=== PATIENT | female | born 1965 | race Caucasian/White ===

== ENCOUNTER 2020-07-25 13:55 | Inpatient (IN) ==
[2020-07-25] MEDS ORDERED: Clindamycin 900 MG/50 ML 900 MG/50 ML IV.SOLN IVPB ONE (14:07)
[2020-07-25] MEDS ORDERED: Ringers Solution, Lactated 1,000 ML IVC SCH (14:15)
[2020-07-25] MEDS ORDERED: *HR* HYDROmorphone PF 0.5 MG/0.5 ML SYRINGE IVP PRN (14:55)
[2020-07-25] MEDS ORDERED: *HR* OxyCODONE Immed Rel 5 MG TABLET PO PRN (14:55)
[2020-07-25] MEDS ORDERED: Ondansetron 4 MG/2 ML VIAL IVP ONE (14:55)
[2020-07-25] MEDS ORDERED: Vancomycin 1,000 MG VIAL ONE (16:15)
[2020-07-25] MEDS ORDERED: Ethanol\\Acetic Acid\\Na Ace\\Ben 1,000 ML IRRIG.SOLN IR ONE (16:15)
[2020-07-25] MEDS ORDERED: *HR* Propofol 200 MG/20 ML VIAL IVP ONE (16:29)
[2020-07-25] MEDS ORDERED: *HR* FentaNYL (PF) 100 MCG/2 ML VIAL ONE ×2 (16:29→17:05)
[2020-07-25] MEDS ORDERED: *HR* Midazolam HCl 2 MG/2 ML VIAL ONE (16:29)
[2020-07-25] MEDS ORDERED: Ropivacaine/PF 0.5% 30 ML VIAL ONE (16:31)
[2020-07-25] MEDS ORDERED: ROPIVACAINE/PF/NS 0.25% 1 EACH SYRINGE INTRAART ONE (16:31)
[2020-07-25] MEDS ORDERED: Lidocaine HCL 4 ML Topical Solution (Laryng-O-Jet Kit Sterile Pak) TP ONE (16:31)
[2020-07-25] MEDS ORDERED: Dexamethasone 4 MG/ML VIAL ONE (16:31)
[2020-07-25] MEDS ORDERED: Ondansetron 4 MG/2 ML VIAL ONE (16:31)
[2020-07-25] MEDS ORDERED: *HR* Succinylcholine 200 MG/10 ML VIAL IVP ONE (16:31)
[2020-07-25] MEDS ORDERED: Lidocaine -MPF 2% 2 ML VIAL ONE (16:31)
[2020-07-25] MEDS ORDERED: *HR* Labetalol 20 MG/4 ML SYRINGE IVP ONE ×2 (18:04→18:30)
[2020-07-25] MEDS: *HR* Labetalol 20 MG/4 ML SYRINGE IVP PRN ×2 (18:05→18:17)
[2020-07-25 18:39] LABS: Hematocrit 43.5 % (35.3-44.9); Hemoglobin 13.7 g/dL (11.5-15.4)
[2020-07-25] MEDS ORDERED: *HR* Dextrose 50 % in Water (Vial) 50 ML VIAL IVP PRN (19:12)
[2020-07-25] MEDS ORDERED: D5% in Water 1,000 ML IVC PRN (19:12)
[2020-07-25] MEDS ORDERED: Dextrose Gel 15 GM/37.5 ML TUBE PO PRN ×2 (19:12)
[2020-07-25] MEDS ORDERED: Sennosides 8.6 MG TABLET PO PRN (19:12)
[2020-07-25] MEDS ORDERED: Ondansetron 4 MG/2 ML VIAL IVP PRN (19:12)
[2020-07-25] MEDS ORDERED: MOM Conc 10 ML UD.LIQ PO PRN (19:12)
[2020-07-25] MEDS ORDERED: Naloxone 0.4 MG/ML INJ IVP PRN (19:12)
[2020-07-25] MEDS: Ringers Solution, Lactated 1,000 ML IVC SCH (20:13)
[2020-07-25] MEDS: *HR* OxyCODONE Immed Rel 5 MG TABLET PO PRN (20:13)
[2020-07-25] MEDS: Insulin LISPRO 300 UNITS/3 ML VIAL SQ SCH ×2 (20:32)
[2020-07-26] MEDS: Clindamycin 900 MG/50 ML 900 MG/50 ML IV.SOLN IVPB SCH ×2 (00:23→10:41)
[2020-07-26 02:26] LABS: Hematocrit 43.1 % (35.3-44.9); Hemoglobin 13.9 g/dL (11.5-15.4)
[2020-07-26 02:44] LABS: BUN/Creatinine Ratio 22 (6-26); Blood Urea Nitrogen 14 mg/dL (6-20); Calcium 9.6 mg/dL (8.6-10.3); Carbon Dioxide 22 mEq/L (23-29); Chloride 103 mEq/L (98-107); Glucose 184 mg/dL (70-105); Osmolality,Calculated 289 (280-300); Sodium 137 mEq/L (136-145); eGFR For African Americans > 60 (> 60); eGFR For Non-African Americans > 60 (> 60)
[2020-07-26] MEDS ORDERED: Aspirin Enteric Coated 81 MG Tablet PO SCH (09:00)
[2020-07-26] MEDS: Insulin LISPRO 300 UNITS/3 ML VIAL SQ SCH ×4 (10:39→20:52)
[2020-07-26] MEDS: *HR* OxyCODONE Immed Rel 5 MG TABLET PO PRN ×2 (10:39→20:52)
[2020-07-26] MEDS: Aspirin Enteric Coated 81 MG Tablet PO SCH (10:40)
[2020-07-26] MEDS: Ringers Solution, Lactated 1,000 ML IVC SCH (10:40)
[2020-07-27] MEDS: Ringers Solution, Lactated 1,000 ML IVC SCH ×2 (04:53→11:58)
[2020-07-27] MEDS: Aspirin Enteric Coated 81 MG Tablet PO SCH (07:35)
[2020-07-27] MEDS: Insulin LISPRO 300 UNITS/3 ML VIAL SQ SCH ×4 (08:02→20:06)
[2020-07-27 10:40] LABS: Hematocrit 45.5 % (35.3-44.9); Hemoglobin 14.1 g/dL (11.5-15.4)
[2020-07-27 10:59] LABS: BUN/Creatinine Ratio 32 (6-26); Blood Urea Nitrogen 24 mg/dL (6-20); Calcium 10.4 mg/dL (8.6-10.3); Carbon Dioxide 24 mEq/L (23-29); Chloride 104 mEq/L (98-107); Glucose 186 mg/dL (70-105); Osmolality,Calculated 293 (280-300); Potassium 4.2 mEq/L (3.5-5.1); Sodium 137 mEq/L (136-145); eGFR For African Americans > 60 (> 60); eGFR For Non-African Americans > 60 (> 60)
[2020-07-27] MEDS: *HR* OxyCODONE/APAP 5/325 TABLET PO PRN (11:34)
[2020-07-27] MEDS: *HR* OxyCODONE Immed Rel 5 MG TABLET PO PRN (19:52)
[2020-07-28] MEDS: *HR* OxyCODONE Immed Rel 5 MG TABLET PO PRN ×2 (01:00→08:01)
[2020-07-28] MEDS: Insulin LISPRO 300 UNITS/3 ML VIAL SQ SCH ×4 (07:50→20:34)
[2020-07-28] MEDS: Aspirin Enteric Coated 81 MG Tablet PO SCH (07:57)
[2020-07-28] MEDS: Ringers Solution, Lactated 1,000 ML IVC SCH ×2 (11:13→11:14)
[2020-07-28] MEDS: *HR* OxyCODONE/APAP 5/325 TABLET PO PRN (20:44)
[2020-07-28] MEDS: lisinopriL 10 MG TABLET PO SCH (20:44)
[2020-07-29] MEDS: Insulin LISPRO 300 UNITS/3 ML VIAL SQ SCH ×3 (09:59→17:17)
[2020-07-29] MEDS: lisinopriL 10 MG TABLET PO SCH (10:05)
[2020-07-29] MEDS: Aspirin Enteric Coated 81 MG Tablet PO SCH (10:05)
[2020-07-29 14:37] VITALS: BP 112/72
== END 2020-07-29 18:37 | DRG 483 ==
LOC: SAMDAY 13:55 → 3NENU 14:16
PROVIDERS: ADMIT Orthopaedic Surgery; ATTEND Orthopaedic Surgery